=== PATIENT | male | born 1940 | race Caucasian/White ===

== ENCOUNTER → 2016-12-04 | Outpatient (CLI) | payer MEDICARE ==
[~2016-12-04] MED LIST: AVODART0.5 MG PO; FLOVENT DI50 MCG/ACT IH; HYDROCHLOROTH12.5 M1 PO; LISINOPRIL40 MG PO; METOPROLOL SUCC25 M1 PO; NIFEDIAC CC60 MG PO; OMEGA-31000 MG PO; PROCARDIA XL 6060 MG OR; SIMVASTATIN40 MG PO; TAMSULOSIN HYD0.4 MG PO; WARFARIN SODIU2.5 MG PO
== END ==
LOC: LAB 11:39
DX: I48.0 Paroxysmal atrial fibrillation (principal); Z79.01 Long term (current) use of anticoagulants; Z51.81 Encounter for therapeutic drug level monitoring

== ENCOUNTER → 2017-03-27 | Outpatient (CLI) | payer MEDICARE | LOC: LAB 11:40 | DX: I48.0 Paroxysmal atrial fibrillation (principal); Z79.01 Long term (current) use of anticoagulants; Z51.81 Encounter for therapeutic drug level monitoring ==

== ENCOUNTER → 2017-05-20 | Outpatient (CLI) | payer MEDICARE | LOC: LAB 09:12 | DX: I48.0 Paroxysmal atrial fibrillation (principal); Z79.01 Long term (current) use of anticoagulants; Z51.81 Encounter for therapeutic drug level monitoring ==

== ENCOUNTER → 2017-05-31 | Outpatient (CLI) | payer MEDICARE | LOC: LAB 09:57 → RT 09:57 | DX: I48.0 Paroxysmal atrial fibrillation (principal); Z79.01 Long term (current) use of anticoagulants; Z51.81 Encounter for therapeutic drug level monitoring ==

== ENCOUNTER → 2017-06-17 | Outpatient (CLI) | payer MEDICARE | LOC: LAB 11:38 | DX: I48.0 Paroxysmal atrial fibrillation (principal); Z79.01 Long term (current) use of anticoagulants; Z51.81 Encounter for therapeutic drug level monitoring ==

== ENCOUNTER 2017-06-20 06:39 | Day surgery (SDC) | payer MEDICARE ==
[~2017-06-20] VITALS: Ht 180.3 cm; Wt 85.7 kg
[2017-06-20 09:00] VITALS: BP 115/70
--- NOTE | 2017-06-27 11:35 | Operative Note ---
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 3 mL of 2 percent lidocaine with epi were injected into the lip area. The markup was incised and the lesion was excised including red and white portions of the LEFT as well as the vermilion. The lesion extended into the orbicularis ebony muscle. The deep portion of the lesion was included in the excision. Bleeding was stopped with bipolar cautery. Flaps were elevated and the tissue rearrangement Z-plasty repair was done with interrupted 5-0 Vicryl and 5-0 nylon sutures. Dressings were applied and the patient was sent to recovery in good general condition. EBL (ml): 1 Specimens obtained: Same as above at 1137
== END 2017-06-20 09:00 | disposition home or self-care (01) ==
LOC: SDC 06:39
PROVIDERS: Otolaryngology
PROC: 0HB1XZX Excision of Face Skin, External Approach, Diagnostic (ICD-10-PCS; principal; 2017-06-20 08:15)
DX: D49.2 Neoplasm of unspecified behavior of bone, soft tissue, and skin (principal)